=== PATIENT | male | born 1960 ===

== ENCOUNTER → 2018-05-14 | Emergency (ER) | payer OTHER ==
[~2018-05-14] VITALS: Ht 172.7 cm; Wt 79.4 kg
[~2018-05-14] MED LIST: TAMBOCOR150 MG; TAMS0.4C
== END | disposition home or self-care (01) ==
LOC: ER 18:03
DX: S32.010A Wedge compression fracture of first lumbar vertebra, initial encounter for closed fracture (principal); S19.89XA Other specified injuries of other specified part of neck, initial encounter; W17.89XA Other fall from one level to another, initial encounter; Y93.89 Activity, other specified; Y92.018 Other place in single-family (private) house as the place of occurrence of the external cause; Y99.8 Other external cause status

== ENCOUNTER 2018-11-12 10:55 | Outpatient (CLI) | payer OTHER | END 2018-11-12 11:18 | disposition home or self-care (01) | LOC: NUCLEAR 10:55 | DX: I11.9 Hypertensive heart disease without heart failure (principal) ==

== ENCOUNTER 2020-01-29 18:00 | Outpatient (CLI) | payer OTHER | END 2020-01-29 18:01 | disposition home or self-care (01) | LOC: PPH VACUNA 18:00 | DX: Z23 Encounter for immunization (principal) ==

== ENCOUNTER 2020-02-29 14:38 | Outpatient (CLI) | payer OTHER | END 2020-02-29 16:33 | disposition home or self-care (01) | LOC: LAB 14:38 | DX: Z03.818 Encounter for observation for suspected exposure to other biological agents ruled out (principal); Z20.828 Contact with and (suspected) exposure to other viral communicable diseases ==

== ENCOUNTER 2022-02-16 14:15 | Outpatient (CLI) | payer OTHER | END 2022-02-16 14:16 | disposition home or self-care (01) | LOC: PPH VACUNA 14:15 | PROVIDERS: ATTEND Emergency Medicine Pediatric Emergency Medicine | DX: Z23 Encounter for immunization (principal) ==

== ENCOUNTER 2022-03-02 12:08 | Outpatient (CLI) | payer OTHER | END 2022-03-02 12:18 | disposition home or self-care (01) | LOC: PPH VACUNA 12:08 | PROVIDERS: ATTEND Emergency Medicine Pediatric Emergency Medicine | DX: Z23 Encounter for immunization (principal) ==